=== PATIENT | female | born 1945 | race Asian ===

== ENCOUNTER → 2017-12-11 | Emergency (ER) | payer SELFPAY, OTHER | END | disposition left against medical advice (07) | LOC: E/R 10:14 | DX: Z53.21 Procedure and treatment not carried out due to patient leaving prior to being seen by health care provider (principal) ==

== ENCOUNTER 2017-12-12 09:42 | Inpatient (IN) | payer OTHER ==
[2017-12-12] MEDS: ASPIRIN 81 MG TAB PO (12:02)
[2017-12-12] MEDS: METHYLPREDNISOLONE 125 MG INJ IV (12:03)
[2017-12-12] MEDS: FUROSEMIDE 40 MG INJ IV (12:07)
[2017-12-12] MEDS: NITROGLYCERIN (SL) 0.4 MG TAB SL (12:07)
[2017-12-12 12:08] LABS: ADD MAN DIFF? NO
[2017-12-12 12:11] LABS: WHITE BLOOD COUNT 9.8 10^3/ul (4.8-10.8)
[2017-12-12 12:11] LABS: BASOPHIL # 0.1 10^3/ul (0.0-0.1); BASOPHILS % 0.5 % (0.0-2.0); EOSINOPHILS # 0.5 10^3/ul (0.0-0.5); EOSINOPHILS % 5.2 % (0.0-7.0); HEMATOCRIT 37.9 % (37.0-47.0); HEMOGLOBIN 12.3 g/dl (12.0-16.0); LYMPHOCYTES # 2.7 10^3/ul (0.8-2.9); LYMPHOCYTES % 27.8 % (15.0-51.0); MEAN CORPUSCULAR HEMOGLOBIN 29.9 pg (29.0-33.0); MEAN CORPUSCULAR HGB CONC 32.5 g/dl (32.0-37.0); MEAN PLATELET VOLUME 10.9 fl (7.4-10.4); MONOCYTE # 0.8 10^3/ul (0.3-0.9); MONOCYTES % 8.3 % (0.0-11.0); NEUTROPHIL # 5.7 10^3/ul (1.6-7.5); NEUTROPHILS % 57.9 % (39.0-77.0); PLATELET COUNT 203 10^3/UL (140-415); RED BLOOD COUNT 4.12 10^6/ul (4.20-5.40); RED CELL DISTRIBUTION WIDTH 14.6 % (11.5-14.5)
[2017-12-12] MEDS: ENALAPRILAT 1.25 MG INJ IV (12:11)
[2017-12-12] MEDS: IPRATROPIUM (NEB) 0.5 MG/2.5 ML AMP INH (12:30)
[2017-12-12 12:31] LABS: AADO2 Arterial 29.5 mmHg (7.0-24.0); Allen Test ACCEPTAB; Arterial Base Excess -1.2 mmol/L (-3.0-3); Arterial COHb 0.5 % (0.0-3.0); Arterial Fraction of Oxyhgb 94.1 % (93.0-99.0); Arterial HCO3 23.4 mmol/L (22.0-26.0); Arterial MetHb 0.4 % (0.0-1.5); Arterial pCO2 38.5 mmhg (35-45); MODE ROOM AIR; Site Right Radial
[2017-12-12] MEDS: ALBUTEROL 0.5% (NEB) 2.5 MG/0.5 ML AMP INH (12:31)
[2017-12-12 12:40] LABS: B-TYPE NATRIURETIC PEPTIDE 49 PG/ML (0-125)
[2017-12-12 12:42] LABS: TROPONIN-I < 0.012 ng/ml (0.00-0.12)
[2017-12-12] MEDS: SOD CHLORIDE 0.9% 1,000 ML IV (14:00)
[2017-12-12] MEDS ORDERED: PROMETHAZINE/CODEINE 5ML CUP PO (17:00)
[2017-12-12] MEDS ORDERED: ONDANSETRON 4 MG INJ IV (17:00)
[2017-12-12] MEDS ORDERED: DOCUSATE SODIUM 100 MG CAP PO (17:00)
[2017-12-12] MEDS: ALBUTEROL/IPRATROPIUM (NEB) 3 ML AMP HHN ×2 (17:00→21:15)
[2017-12-12] MEDS ORDERED: HYDROCODONE/APAP (5/325) TAB PO (17:00)
[2017-12-12] MEDS ORDERED: IBUPROFEN 600 MG TAB PO (17:00)
[2017-12-12] MEDS ORDERED: NACL 0.9% 3 ML SYG IV (17:00)
[2017-12-12] MEDS ORDERED: MINERALS PO (17:00)
[2017-12-12] MEDS ORDERED: ACETAMINOPHEN 325 MG TAB PO (17:00)
[2017-12-12] MEDS ORDERED: BISACODYL (EC) 5 MG TAB PO (17:00)
[2017-12-12] MEDS ORDERED: MULTIVITAMINS PO (17:00)
[2017-12-12] MEDS: AMLODIPINE 10 MG TAB PO (18:00)
[2017-12-12] MEDS: MULTIVITAMINS THERAPEUTIC TAB PO (18:00)
[2017-12-12] MEDS: LOSARTAN 50 MG TAB PO (18:00)
[2017-12-12] MEDS: FUROSEMIDE 20 MG INJ IV (18:00)
[2017-12-12] MEDS: LEVOFLOXACIN 500MG/D5W (PMX) 100 ML IVPB ×2 (18:21→19:10)
[2017-12-12 18:34] LABS: ALANINE AMINOTRANSFERASE 23 IU/L (13-69); ALBUMIN 5.1 g/dl (3.3-4.9); ALBUMIN/GLOBULIN RATIO 1.15; ALKALINE PHOSPHATASE 101 IU/L (42-121); ANION GAP 21 (8-16); ASPARTATE AMINO TRANSFERASE 31 IU/L (15-46); BILIRUBIN,INDIRECT 0.3 mg/dl (0-1.1); BILIRUBIN,TOTAL 0.3 mg/dl (0.2-1.3); BLOOD UREA NITROGEN 26 mg/dl (7-20); CALCIUM 10.3 mg/dl (8.4-10.2); CARBON DIOXIDE 22 mmol/L (21-31); CHLORIDE 103 mmol/L (97-110); CREATININE 1.77 mg/dl (0.44-1.00); GLUCOSE 190 mg/dl (70-220); LIPASE 98 U/L (23-300); POTASSIUM 4.6 mmol/L (3.5-5.1); SODIUM 141 mmol/L (135-144); TOTAL PROTEIN 9.5 g/dl (6.1-8.1)
[2017-12-12 20:42] LABS: ADD UMIC YES; UR ASCORBIC ACID NEGATIVE (NEGATIVE); UR BILIRUBIN (Dip) NEGATIVE (NEGATIVE); UR BLOOD (Dip) 1+ mg/dL (NEGATIVE); UR CLARITY CLEAR (CLEAR); UR COLOR STRAW (YELLOW); UR GLUCOSE (Dip) NEGATIVE (NEGATIVE); UR KETONES (Dip) NEGATIVE (NEGATIVE); UR LEUKOCYTE ESTERASE (Dip) NEGATIVE Leu/ul (NEGATIVE); UR NITRITE (Dip) NEGATIVE (NEGATIVE); UR RBC 1 /HPF (0-5); UR SPECIFIC GRAVITY (Dip) 1.008 (1.003-1.030); UR TOTAL PROTEIN (Dip) NEGATIVE (NEGATIVE); UR UROBILINOGEN (Dip) NEGATIVE (NEGATIVE); UR WBC 2 /HPF (0-5)
[2017-12-12] MEDS: METHYLPREDNISOLONE 40 MG INJ IV (20:51)
[2017-12-12] MEDS: FAMOTIDINE 20 MG INJ IV (20:51)
[2017-12-12] MEDS: MONTELUKAST 10 MG TAB PO (20:52)
[2017-12-12] MEDS: ATORVASTATIN 10 MG TAB PO (20:52)
[2017-12-12] MEDS ORDERED: NON-FORMULARY/PATIENT OWN MED (Simvastatin* (Zocor*) 20 MG) PO (21:00)
[2017-12-12] MEDS: ZOLPIDEM 5 MG TAB PO (22:32)
[2017-12-13] MEDS: FUROSEMIDE 20 MG INJ IV ×2 (05:43→17:16)
[2017-12-13 08:23] LABS: ALBUMIN 4.7 g/dl (3.3-4.9); ALBUMIN/GLOBULIN RATIO 1.09; ANION GAP 21 (8-16); BILIRUBIN,INDIRECT 0.1 mg/dl (0-1.1); BILIRUBIN,TOTAL 0.1 mg/dl (0.2-1.3); BLOOD UREA NITROGEN 35 mg/dl (7-20); CALCIUM 10.3 mg/dl (8.4-10.2); CARBON DIOXIDE 22 mmol/L (21-31); CHLORIDE 105 mmol/L (97-110); CREATININE 1.88 mg/dl (0.44-1.00); GLUCOSE 139 mg/dl (70-220); PHOSPHORUS 2.9 mg/dl (2.5-4.9); POTASSIUM 4.9 mmol/L (3.5-5.1); SODIUM 143 mmol/L (135-144)
[2017-12-13 08:28] LABS: ALANINE AMINOTRANSFERASE 20 IU/L (13-69); ALKALINE PHOSPHATASE 88 IU/L (42-121); ASPARTATE AMINO TRANSFERASE 27 IU/L (15-46)
[2017-12-13] MEDS: MULTIVITAMINS THERAPEUTIC TAB PO (08:45)
[2017-12-13] MEDS: FAMOTIDINE 20 MG INJ IV (08:45)
[2017-12-13] MEDS: AMLODIPINE 10 MG TAB PO (08:45)
[2017-12-13] MEDS: LOSARTAN 50 MG TAB PO (08:45)
[2017-12-13] MEDS: METHYLPREDNISOLONE 40 MG INJ IV ×2 (08:45→22:10)
[2017-12-13] MEDS: ENOXAPARIN 30 MG/0.3 ML SYG SC (08:47)
[2017-12-13] MEDS: ALBUTEROL/IPRATROPIUM (NEB) 3 ML AMP HHN ×4 (10:17→20:16)
[2017-12-13] MEDS ORDERED: GLUCOSE GEL 15 GRAM TUBE PO ×2 (12:30)
[2017-12-13] MEDS ORDERED: GLUCAGON 1 MG INJ IM (12:30)
[2017-12-13] MEDS ORDERED: GLUCOSE GEL 15 GRAM TUBE BUCCAL (12:30)
[2017-12-13] MEDS ORDERED: DEXTROSE 50% 50 ML SYRINGE IV ×2 (12:30)
[2017-12-13] MEDS: LEVOFLOXACIN 250MG/D5W (PMX) 50 ML IVPB (17:16)
[2017-12-13] MEDS: INSULIN ASPART [NOVOLOG] 3 ML PEN SC (17:17)
[2017-12-13] MEDS: ATORVASTATIN 10 MG TAB PO (22:10)
[2017-12-14] MEDS: MONTELUKAST 10 MG TAB PO (00:23)
[2017-12-14] MEDS: FUROSEMIDE 20 MG INJ IV ×2 (06:04→18:00)
[2017-12-14 08:13] LABS: HEMOGLOBIN A1C 5.8 % (0-5.9)
[2017-12-14] MEDS: ENOXAPARIN 30 MG/0.3 ML SYG SC (08:34)
[2017-12-14] MEDS: METHYLPREDNISOLONE 40 MG INJ IV (08:35)
[2017-12-14] MEDS: INSULIN ASPART [NOVOLOG] 3 ML PEN SC ×2 (08:35→12:47)
[2017-12-14] MEDS: FAMOTIDINE 20 MG INJ IV (08:35)
[2017-12-14] MEDS: LOSARTAN 50 MG TAB PO (08:36)
[2017-12-14] MEDS: AMLODIPINE 10 MG TAB PO (08:36)
[2017-12-14] MEDS: MULTIVITAMINS THERAPEUTIC TAB PO (08:36)
[2017-12-14] MEDS: ALBUTEROL/IPRATROPIUM (NEB) 3 ML AMP HHN ×3 (09:00→17:00)
[2017-12-14] MEDS: LEVOFLOXACIN 250MG/D5W (PMX) 50 ML IVPB (18:00)
[2017-12-15] MEDS ORDERED: INFLUENZA VIRUS VACCINE 0.5 ML SYG IM* (09:00)
== END 2017-12-14 18:04 | disposition home or self-care (01) | DRG 304 ==
LOC: E/R 09:42 → MS4 12-13 21:26 → MS3 14:23
DX: I16.0 Hypertensive urgency (principal); J18.9 Pneumonia, unspecified organism; J45.901 Unspecified asthma with (acute) exacerbation; N32.81 Overactive bladder; I10 Essential (primary) hypertension; E78.00 Pure hypercholesterolemia, unspecified; E78.5 Hyperlipidemia, unspecified; M81.0 Age-related osteoporosis without current pathological fracture; I45.10 Unspecified right bundle-branch block
CPT/HCPCS: 36600; 71045; 80053; 81001; 82803; 82962; 83036; 83690; 83735; 83880; 84100; 84484; 85025; 87400; 93005; 93306; 93970; 94640; 96374; 96375; 99285-25; J1940

== ENCOUNTER 2018-09-01 10:29 | Emergency (ER) | payer OTHER ==
[2018-09-01] MEDS: TETRACAINE 0.5% 4 ML OPH LEFT EYE (11:26)
[2018-09-01] MEDS: OPHTHALMIC IRRIG SOLUTION 120 ML LEFT EYE (11:26)
== END 2018-09-01 12:10 | disposition home or self-care (01) ==
LOC: FTE 10:29
DX: H57.89 Other specified disorders of eye and adnexa (principal); I10 Essential (primary) hypertension; J45.909 Unspecified asthma, uncomplicated
CPT/HCPCS: 99283; Z7502